=== PATIENT | male | born 1980 | race Caucasian/White ===

== ENCOUNTER 2021-09-21 10:23 | Inpatient (IN) | payer SELFPAY ==
[2021-09-21 11:21] VITALS: BMI 28.1
[2021-09-21 11:27] VITALS: BP 149/90; PULSE 82; RESP 18; TEMP 36.9; O2SAT 97
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
[2021-09-21] MEDS: nicotine 21 mg Patch 1 PATCH TRANSDERMA (12:44)
[2021-09-21 14:00] VITALS: BP 133/91; PULSE 67; RESP 20; TEMP 36.9; O2SAT 98
[2021-09-21 21:29] VITALS: BP 146/93; PULSE 96; RESP 16; TEMP 36.9; O2SAT 98
[2021-09-22 06:00] VITALS: BP 125/85; PULSE 74; RESP 18; TEMP 37; O2SAT 99
[2021-09-22] MEDS: nicotine 21 mg Patch 1 PATCH TRANSDERMA (10:29)
--- NOTE | 2021-09-22 11:46 | NPU.GN ---
[facility] Group Topic: Lico Bearden General Mood of Group: Malik did attend and participate in group. Hygiene was good and he was social and pleasant with others.
[2021-09-22] MEDS: nicotine 2 mg Gum BUCCAL ×2 (12:21→17:24)
--- NOTE | 2021-09-22 13:35 | W.PM.NPUPNS ---
Subjective NPU Subjective: Interval history: He says that he has little better last night. He slept better than normal last night with outpatient medications. He has not taken any medication since he has been here. He has been doing a lot of thinking. He has decided he is definitely not going to have more contact with his ex-girlfriend. He is going to block her on social media. That is a huge step for him and he is happy that he is making it. He denies any suicidal ideation today. He wants to go home tomorrow and start looking for a job. He is more optimistic about his future. He agrees that he does not have bipolar disorder because his moods have been completely dependent on what this girl does and she can change his mood on a diet. Mental Status Exam MSE Comments: This is a 40-year-old overweight male who appears about his stated age and in no acute distress. He is pleasant and cooperative with the evaluation. He has poor dentition and only fair grooming. He is dressed in hospital scrubs. psychomotor activity is normal. Speech is at a regular rate and rhythm, normal volume, good articulation, not pressured. Alert, oriented X3 Attention and concentration appears to be normal. Memory is intact Mood is depressed but a little better Affect is moderately dysphoric. Thought process is logical and goal-directed. Thought content: Denies auditory and visual hallucinations. No delusions or paranoia are noted. He denies any suicidal ideation today. He is confident that it will not return. He denies homicidal ideation. Fund of knowledge is average. Insight and judgment appear to be fair. Impulse control is fair. Cognition: Ability to Follow Directions: Good Comprehension Ability: No Impairment Hallucination Type: None Affect: Affect Description: Appropriate and Calm Behavior: Patient Behavior: Appropriate and Cooperative Speech Pattern: Appropriate and Clear Vitals/I&O/Wt Last Vital Signs Temp 98.6 F 09/22/21 06:00 Pulse 74 09/22/21 06:00 Resp 18 09/22/21 06:00 BP 125/85 09/22/21 06:00 Pulse Ox 99 09/22/21 06:00 Weight last 48 hrs Weight 81.647 kg A&P Assessment and plan (1) Depression: Status: Acute (2) Partner relational problem: Status: Acute (3) Cannabis abuse: Status: Acute (4) Methamphetamine abuse: Status: Acute (5) Suicidal ideation: Status: Acute Plan This is a 40-year old male with psychiatric treatment about 20 years ago which was not helpful from this point of view. Now has cannabis and marijuana abuse and partner relational problems and suicidal ideation. Plan: 1. Observation off medication for now. 2. Continue every 15 minute checks for safety. 3. Encourage individual, group and milieu therapies. 4. Encourage sober living treatment after discharge at the highest level of care to which he is willing to commit. 5. We will monitor for safety for himself in the community prior to discharge. Involuntary Hold Information 96 Hour Hold: 96 Hour Involuntary Admission: Yes Attestations NPU Medical Necessity Statement*: Inpatient hospitalization is medically necessary and the clinically appropriate intervention at this time. We will initiate medications and make changes as indicated. Coding Level of Care Code Acute Advisory Services Associate for Fred Childers Diagnoses Depression F32.A Partner relational problem Z63.0 Cannabis abuse F12.10 Methamphetamine abuse F15.10 Suicidal ideation R45.851
[2021-09-22 14:00] VITALS: BP 129/86; PULSE 109; RESP 20; TEMP 37.1; O2SAT 98
[2021-09-22 20:18] VITALS: BP 127/82; PULSE 98; RESP 16; TEMP 36.6; O2SAT 98
[2021-09-23 06:00] VITALS: BP 119/79; PULSE 92; RESP 20; TEMP 36.6; O2SAT 97
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
[2021-09-23 08:24] VITALS: BP 119/79; PULSE 92; RESP 20; TEMP 36.6; O2SAT 97
[2021-09-23] MEDS: nicotine 21 mg Patch 1 PATCH TRANSDERMA (09:16)
== END 2021-09-23 11:09 | disposition home or self-care (01) | DRG 885 ==
PROVIDERS: Admitting Provider Psychiatry & Neurology Psychiatry; Visit Provider Psychiatry & Neurology Psychiatry
DX: F31.9 Bipolar disorder, unspecified (principal); R45.851 Suicidal ideations; F12.10 Cannabis abuse, uncomplicated; F15.10 Other stimulant abuse, uncomplicated; Z63.0 Problems in relationship with spouse or partner
CPT/HCPCS: 97150; 97165